=== PATIENT | female | born 1980 | race African-American/Black ===

== ENCOUNTER 2016-06-04 09:02 | Emergency (ER) ==
--- NOTE | 2016-06-04 09:48 | PROVIDER DOCUMENTATION ---
HPI-Female /OB/Breast - General Chief Complaint: Female Stated Complaint: "IRRITATION IN PRIVATE AREA" Time Seen by Provider: 06/04/16 09:33 Source: reports: patient Allergies/Adverse Reactions: Patient Allergies Allergy/AdvReac Type Severity Reaction Status Date / Time No Known Allergies Allergy Verified 06/04/16 09:18 - History of Present Illness-Female /OB Nature of Presenting Problem: Pt is 36 y/o F presents to the ED with vaginal burning and itching. Pt states prior hx of trichomoniasis. Pt states having white discharge. Pt states the symptoms have been present for two days. Pt states LMP was May 29 Does patient report she is ?: No Location of complaint: reports: vaginal Radiation: reports: none Quality of Pain: reports: burning Severity in ED: reports: mild Onset/Duration: reports: 2 days ago Timing: reports: still present, intermittent Context/Activities at Onset: reports: light activity Vaginal Symptoms: reports: itching Vaginal Bleeding Amount: None Urinary Symptoms: reports: no symptoms Related Symptoms: reports: no symptoms Leakage of Fluid: none Sexual intercourse history: reports: Other (unsure) Contraception: reports: none Modifying Factors: improves with: nothing Associated Symptoms: reports: denies symptoms Similar Symptoms Previously?: Yes Recently seen or treated by another doctor?: No - LMP/ History LMP: 05/29/16 Review of Systems - Adult - REVIEW OF SYSTEMS - ADULT Constitutional: denies: chills, fever Eyes: denies: blurred vision, double vision Ears, Nose, Mouth & Throat: denies: ear pain, nose pain, throat pain Cardiovascular: denies: chest pain, heart murmur, irregular heart rate Respiratory: denies: cough, shortness of breath, wheezing Gastrointestinal: denies: abdominal pain, diarrhea, nausea, vomiting Genitourinary: reports: discharge, other. denies: dysuria, hematuria Musculoskeletal: denies: bone pain, joint pain, neck pain Integumentary: denies: hives, itching Neurological: denies: dizziness/vertigo, headache/migraines Psychiatric: reports: no symptoms reported Endocrine: reports: no symptoms reported Hematologic/Lymphatic: reports: no symptoms reported Allergic/Immunologic: reports: no symptoms reported All Other Systems: Reviewed and Negative Past History - Adult - PAST MEDICAL HISTORY-ADULT Review of Records: reports: Nursing Assessment Review, Medications Reviewed, Social history reviewed & non-contributory. Major Childhood Illnesses: reports: denies history Cardiovascular: reports: denies history Respiratory: denies: asthma Gastrointestinal: reports: denies history Obstetrical/Gynecological: reports: denies history Genitourinary: reports: denies history Musculoskeletal: reports: denies history Neurological: reports: denies history Endocrine/Immune: reports: denies history Other Conditions: reports: denies history - PRIOR SURGERIES/PROCEDURES Surgical/Procedure History: reports: BTL - IMMUNIZATION STATUS Childhood Immunizations: See Nurse Assessment Flu Vaccine: See Nurse Assessment - FAMILY HISTORY Family History: reviewed, not pertinent - SOCIAL HISTORY Smoking: cigarettes, less than 1 pack/day Provider spent 3-5 mins advising pt. on dangers of tobacco.: Discussed manners to quit use, and f/u contacts for add'l counseling. Substance Use: alcohol Alcohol Use Frequency: occasionally Number of drinks per typical drinking period:: 3-4 drinks Living Situation: family Physical Exam-General - PHYSICAL EXAM-ADULT Initial Vital Signs Reviewed: Yes - CONSTITUTIONAL General Appearance: appears well, alert, no apparent distress - EYES Eyes: PERRL/EOMI, pink conjunctivae, fundi clear, no AV nicking - HEAD, EARS, NOSE, MOUTH & THROAT HENMT: normocephalic/atraumatic, moist mucous membranes, normal ENT inspection, TMs normal, pharynx normal - NECK Neck: non-tender, full range of motion, supple, normal inspection - RESPIRATORY Respiratory: chest non-tender, lungs clear, normal breath sounds, no pleuratic chest pain, no respiratory distress, no accessory muscle use - CARDIOVASCULAR Cardiovascular: normal peripheral pulses, regular rate, rhythm, no edema, no gallop, no JVD, no murmur - GASTROINTESTINAL (ABDOMEN) Abdominal Exam: normal bowel sounds, non tender, soft, no organomegaly, no pulsatile mass - GENITOURINARY Female Genitalia/Pelvic Exam: speculum exam normal, no cerv. motion tender, no masses, discharge (white). negative: active bleeding, blood, cervicitis, herpes -like ulcerations, lesions Male Genitalia: deferred Rectal Exam: deferred - LYMPHATIC Lymphatic: no adenopathy - MUSCULOSKELETAL Back Exam: normal inspection, no CVA tenderness, no vertebral tenderness Extremity: normal range of motion, non-tender, normal gait, normal inspection, no pedal edema, no calf tenderness, normal capillary refill, pelvis stable - SKIN Integumentary: normal color, normal turgor, warm/dry - NEUROLOGIC Neurologic: clinical fellow II-XII nml as tested, grossly normal, no motor/sensory deficits - PSYCHIATRIC Psych/Mental Status: normal mood/affect, normal thought content, normal thought process, oriented x 3 Progress - PLAN OF CARE/RESULTS Progress/Plan/Lab Results: Orders Category Date Time Status WET PREP [RM] Stat Lab 06/04/16 10:01 Ordered Vital Signs - 24 hr 06/04/16 09:16 Temperature 98.7 F Pulse Rate 89 Respiratory 18 Rate Blood Pressure 107/70 O2 Sat by Pulse 100 Oximetry Departure - Departure Time of Disposition Order: 10:29 DIAGNOSIS: Trichomonas infection DIAGNOSIS: (Ruled Out): Trichomoniasis of vagina Disposition: HOME 01 Certified Medical Emergency: Emergent Condition: Stable Additional Instructions: ED Follow Up Instructions: You have been treated by a care provider in the Emergency Department. These instructions are being provided to you so you can have an understanding of how to care for yourself upon discharge. Upon discharge from the Emergency Department, you are responsible for making arrangements for follow-up care by a physician of your choice. Take all prescribed medications as directed. Return to the Emergency Department immediately for any new or worsening symptoms. You may call the Physician Referral phone number at [phone] to obtain a list of Physicians who are taking new patients. Referrals: Antonio Carlson MD [STAFF PHYSICIAN] - None,PCP [Primary Care Provider] - Forms: Return to School/Parent Work Instructions: Trichomoniasis Attestation - Scribe Verification/Attestation Scribe:: Cielo Torres Acting as Scribe for:: Eriberto Baird Scribe documention review:: This chart was documented by a scribe and accurately reflects the service the provider performed and the decisions made by the provider.
[2016-06-04] MEDS ORDERED: FLAGYL PO ONE (10:30)
[2016-06-04] MEDS ORDERED: FLAGYL ONE (10:43)
[2016-06-04 10:53] VITALS: BP 132/74
== END 2016-06-04 10:53 | disposition home or self-care (01) ==
LOC: P.ED 09:02
DX: A59.9 Trichomoniasis, unspecified (principal); L29.2 Pruritus vulvae; N89.8 Other specified noninflammatory disorders of vagina; F17.210 Nicotine dependence, cigarettes, uncomplicated; Z71.6 Tobacco abuse counseling
CPT/HCPCS: 87210; 99284

== ENCOUNTER 2016-06-30 01:05 | Emergency (ER) ==
--- NOTE | 2016-06-30 01:32 | PROVIDER DOCUMENTATION ---
HPI-Abdominal Pain/GI Problem - General Source: patient - History of Present Illness-ABD Nature of Presenting Problems: 46 Y/O F presents to ED with ABD. Pt c/o of LUQ pain, with no radiation denies all symptoms. Onset 2 days ago states got worried came to ED, states possibility of being . Describes ABD pain as sharp pain. Abdominal Pain Onset Location: reports: LUQ Pain Radiation: reports: no radiation Quality of Pain: reports: sharp Severity in ED: reports: mild, moderate Onset/Duration: reports: 2 days ago Timing: reports: still present, intermittent Activities at Onset: reports: none Exposure to sick contacts?: No Associated Symptoms: reports: denies symptoms <Evelyn Connolly - Last Filed: 06/30/16 01:26> <Melanie Bryant - Last Filed: 06/30/16 01:43> <Panchito Lambert - Last Filed: 06/30/16 04:05> - General Chief Complaint: Abdominal Pain Stated Complaint: FEMALE Time Seen by Provider: 06/30/16 01:07 Allergies/Adverse Reactions: Patient Allergies Allergy/AdvReac Type Severity Reaction Status Date / Time No Known Allergies Allergy Verified 06/30/16 01:18 Home Medications: Home Medication List Medication Instructions Recorded Confirmed Last Taken Type Hydrocodone/Acetaminophen [[place] 1 each PO Q4-6H PRN PRN #12 tablet 06/30/16 Unknown Rx 5-325 Tablet] Ketorolac [Toradol] 10 mg PO Q6H PRN PRN #20 tablet 06/30/16 Unknown Rx Review of Systems - Adult - REVIEW OF SYSTEMS - ADULT Constitutional: denies: chills, fever Eyes: reports: no symptoms reported Ears, Nose, Mouth & Throat: reports: no symptoms reported Cardiovascular: reports: no symptoms reported Respiratory: reports: no symptoms reported Gastrointestinal: reports: abdominal pain. denies: diarrhea, nausea, vomiting Genitourinary: reports: no symptoms reported Musculoskeletal: reports: no symptoms reported Integumentary: reports: no symptoms reported Neurological: denies: dizziness/vertigo, headache/migraines Psychiatric: reports: no symptoms reported Endocrine: reports: no symptoms reported Hematologic/Lymphatic: reports: no symptoms reported Allergic/Immunologic: reports: no symptoms reported All Other Systems: Reviewed and Negative <Evelyn Connolly - Last Filed: 06/30/16 01:26> Past History - Adult - PAST MEDICAL HISTORY-ADULT Review of Records: reports: Old Records Reviewed, Nursing Assessment Review, Medications Reviewed, Social history reviewed & non-contributory. Major Childhood Illnesses: reports: denies history Cardiovascular: reports: denies history Respiratory: denies: asthma Gastrointestinal: reports: denies history Obstetrical/Gynecological: reports: denies history Genitourinary: reports: denies history Musculoskeletal: reports: denies history Neurological: reports: denies history Endocrine/Immune: reports: denies history Other Conditions: reports: denies history - PRIOR SURGERIES/PROCEDURES Surgical/Procedure History: reports: BTL - IMMUNIZATION STATUS Childhood Immunizations: See Nurse Assessment Flu Vaccine: See Nurse Assessment - FAMILY HISTORY Family History: reviewed, not pertinent - SOCIAL HISTORY Smoking: cigarettes, less than 1 pack/day Alcohol Use Frequency: occasionally Living Situation: family <Evelyn Connolly Last Filed: 06/30/16 01:26> Physical Exam-General - PHYSICAL EXAM-ADULT Initial Vital Signs Reviewed: Yes - CONSTITUTIONAL General Appearance: appears well, alert, no apparent distress - EYES Eyes: PERRL/EOMI, pink conjunctivae, fundi clear, no AV nicking - HEAD, EARS, NOSE, MOUTH & THROAT HENMT: normocephalic/atraumatic, moist mucous membranes, normal ENT inspection, TMs normal, pharynx normal - NECK Neck: non-tender, full range of motion, supple, normal inspection - RESPIRATORY Respiratory: chest non-tender, lungs clear, normal breath sounds - CARDIOVASCULAR Cardiovascular: normal peripheral pulses, regular rate, rhythm, no edema - GASTROINTESTINAL (ABDOMEN) Abdominal Exam: normal bowel sounds, non tender, soft - LYMPHATIC Lymphatic: no adenopathy - MUSCULOSKELETAL Back Exam: normal inspection, no CVA tenderness, no vertebral tenderness Extremity: normal range of motion, non-tender - SKIN Integumentary: normal color, normal turgor, warm/dry - PSYCHIATRIC Psych/Mental Status: normal mood/affect, normal thought content, normal thought process, oriented x 3 <Evelyn Connolly Filed: 06/30/16 01:26> Progress - CHANGE OF SHIFT REPORT (ED Provider) Report Given and Care Transferred to:: Dr. Lambert Time of Transfer: 01:43 Items Pending: Labs, CT/MRI Results Tentative Impression of Patient: stable <Melanie Bryant - Last Filed: 06/30/16 01:43> Departure <Evelyn Connolly - Last Filed: 06/30/16 01:26> <Melanie Bryant - Last Filed: 06/30/16 01:43> - Departure Time of Disposition Order: 04:00 Certified Medical Emergency: Emergent <Panchito Lambert - Last Filed: 06/30/16 04:05> - Departure DIAGNOSIS: Ovarian cyst Disposition: HOME 01 Condition: Stable Prescriptions: Hydrocodone/Acetaminophen [[place] 5-325 Tablet] 1 each PO Q4-6H PRN PRN #12 tablet PRN Reason: Pain Ketorolac [Toradol] 10 mg PO Q6H PRN PRN #20 tablet PRN Reason: Pain Attestation - Scribe Verification/Attestation Scribe:: Evelyn Connolly Acting as Scribe for:: Panchito Lambert Scribe documention review:: This chart was documented by a scribe and accurately reflects the service the provider performed and the decisions made by the provider. - Physician/ ALEXANDER Attestation Patient care was provided by Advanced Practice Provider:: Yes Advanced Practice Provider:: Melanie Bryant Advanced Practice Provider documentation review:: The Mid-level provider documentation, treatment plan and medical decision making was reviewed by the physician who agrees with all treatment and medical decision making by the MLP. <Evelyn Connolly - Last Filed: 06/30/16 01:26> Physician Attestation
[2016-06-30 01:40] LABS: URINE SOURCE CLEAN CATCH
[2016-06-30 01:48] LABS: MANUAL DIFF NEEDED? NO
[2016-06-30 01:53] LABS: BASO% 0.3 % (0.0-0.8); EOS# 0.06 X1000 (0.0-0.7); EOS% 0.8 % (0.0-10.0); HEMOGLOBIN 12.7 g/dL (12.0-16.0); IMM GRAN# 0.01 X1000 (0.0-0.04); IMM GRAN% 0.1 % (0.0-0.5); LYMPH# 2.98 X1000 (1.2-3.4); LYMPH% 37.3 % (20.5-51.1); MCHC 35.3 g/dL (33-37); MCV 96.3 FL (81-99); MONO# 0.57 X1000 (0.11-0.59); MONO% 7.1 % (1.7-9.3); MPV 9.3 FL (7.4-10.4); NEUT% 54.4 % (42.2-75.2); PLT 271 X1000 (130-400); RBC 3.74 XMIL (4.2-5.4)
[2016-06-30 02:02] LABS: BILIRUBIN URINE NEGATIVE (NEGATIVE); BLOOD URINE NEGATIVE (NEGATIVE); CLARITY CLEAR (CLEAR); COLOR YELLOW; GLUCOSE URINE NEGATIVE (NEGATIVE); LEUKOCYTES URINE NEGATIVE (NEGATIVE); NITRITE URINE NEGATIVE (NEGATIVE); PROTEIN URINE NEGATIVE (NEGATIVE); SP GRAVITY URINE 1.015; UROBILINOGEN URINE NORMAL
[2016-06-30 02:04] LABS: URINE EPITHELIAL CELLS <10 /HPF (<10); URINE WBC <10 /HPF (<10)
[2016-06-30 02:05] LABS: URINE CULTURE PL NEEDED? YES
[2016-06-30 02:25] LABS: AGAP 12; ALBUMIN 3.9 g/dL (3.5-5.0); ALKALINE PHOSPHATASE 40 U/L (32-104); AMYLASE 51 U/L (20-200); BUN 11 mg/dL (8-22); CHLORIDE 103 mmol/L (98-107); COSMO 275; GOT 10 U/L (10-30); GPT < 5 U/L (10-36); LIPASE 23 U/L (13-60); POTASSIUM 3.9 mmol/L (3.5-5.1); SODIUM 138 mmol/L (136-145); TCO2 24 mmol/L (25-35); TOTAL BILIRUBIN < 0.15 mg/dL (0.20-1.00); TOTAL PROTEIN 6.9 g/dL (6.3-8.3)
[2016-06-30 04:14] VITALS: BP 92/60
--- NOTE | 2016-06-30 09:42 | Diag Imaging Result Document ---
PROCEDURE NAME: CT ABD/PELVIS W/ IV CONT ONLY - 06/30/2016 CT ABDOMEN AND PELVIS WITH INTRAVENOUS CONTRAST: A CT dose reduction protocol was used. COMPARISON: None. FINDINGS: There is a small 4 mm right lower lobe pulmonary nodule. Lung bases are otherwise clear. There is moderate patient motion artifact on this exam. There is significant constipation. No bowel obstruction or inflammation. Normal appendix. There is a tiny cyst in the left lobe of the liver. The gallbladder, pancreas, spleen, adrenals, and kidneys are grossly normal. There is moderate pelvic free fluid. There is a partially collapsed, rim enhancing left ovarian cyst measuring 1.9 cm. Urinary bladder, uterus, and rectum are normal. Bony structures are intact. IMPRESSION: 1. Constipation. 2. Partially collapsed left ovarian cyst and pelvic free fluid, presumably physiologic cyst rupture. [facility]
--- NOTE | 2016-06-30 09:42 | Diag Imaging Result Document ---
PROCEDURE NAME: FLAT/UPRIGHT ABD/1 VIEW CHEST - 06/30/2016 FRONTAL CHEST X-RAY AND 2 VIEWS THE ABDOMEN: COMPARISON: None. FINDINGS: The chest is clear. There is mild constipation through the colon. No bowel obstruction or free air. No abnormal calcifications. IMPRESSION: Perhaps mild constipation but no acute disease.
== END 2016-06-30 04:14 | disposition home or self-care (01) ==
LOC: P.ED 01:05
DX: N83.202 Unspecified ovarian cyst, left side (principal); R10.12 Left upper quadrant pain; F17.210 Nicotine dependence, cigarettes, uncomplicated
CPT/HCPCS: 74022; 74177; 80053; 81001; 81025; 82150; 83690; 85025; 87088; Q9967